=== PATIENT | female | born 1960 | race Caucasian/White ===

== ENCOUNTER 2018-06-30 20:05 | Inpatient (IN) | payer OTHER ==
[2018-06-30] MEDS ORDERED: BISACODYL (EC) 5 MG TAB PO (21:30)
[2018-06-30] MEDS: METOPROLOL (XL) 50 MG TAB PO (21:30)
[2018-06-30] MEDS ORDERED: ACETAMINOPHEN 325 MG TAB PO ×2 (21:30)
[2018-06-30] MEDS ORDERED: NACL 0.9% 3 ML SYG IV (21:30)
[2018-06-30] MEDS ORDERED: ONDANSETRON 4 MG INJ IV (21:30)
[2018-06-30] MEDS ORDERED: DOCUSATE SODIUM 100 MG CAP PO (21:30)
[2018-06-30 21:54] LABS: ADD MAN DIFF? NO
[2018-06-30 21:56] LABS: BASOPHILS % 0.5 % (0.0-2.0); EOSINOPHILS % 0.1 % (0.0-7.0); HEMATOCRIT 45.7 % (37.0-47.0); HEMOGLOBIN 14.3 g/dl (12.0-16.0); LYMPHOCYTES # 1.6 10^3/ul (0.8-2.9); MEAN CORPUSCULAR HEMOGLOBIN 27.1 pg (29.0-33.0); MEAN CORPUSCULAR HGB CONC 31.3 g/dl (32.0-37.0); MEAN CORPUSCULAR VOLUME 86.6 fl (82.0-101.0); MONOCYTE # 0.6 10^3/ul (0.3-0.9); MONOCYTES % 7.2 % (0.0-11.0); NEUTROPHIL # 6.2 10^3/ul (1.6-7.5); PLATELET COUNT 352 10^3/UL (140-415); RED BLOOD COUNT 5.28 10^6/ul (4.20-5.40); RED CELL DISTRIBUTION WIDTH 13.6 % (11.5-14.5)
[2018-06-30 21:56] LABS: WHITE BLOOD COUNT 8.5 10^3/ul (4.8-10.8)
[2018-06-30 22:14] LABS: HEMOGLOBIN A1C 7.6 % (0-5.9)
[2018-06-30 22:19] LABS: ALANINE AMINOTRANSFERASE 84 IU/L (13-69); ALBUMIN 4.6 g/dl (3.3-4.9); ALBUMIN/GLOBULIN RATIO 1.27; ALKALINE PHOSPHATASE 133 IU/L (42-121); ANION GAP 16 (5-13); ASPARTATE AMINO TRANSFERASE 60 IU/L (15-46); BILIRUBIN,INDIRECT 0.4 mg/dl (0-1.1); BILIRUBIN,TOTAL 0.4 mg/dl (0.2-1.3); BLOOD UREA NITROGEN 45 mg/dl (7-20); CARBON DIOXIDE 29 mmol/L (21-31); CHLORIDE 92 mmol/L (97-110); CHOLESTEROL 89 mg/dl (100-200); CREATININE 1.32 mg/dl (0.44-1.00); Estimated GFR 41 mL/min (>60); GLUCOSE 104 mg/dl (70-220); HDL CHOLESTEROL 22 mg/dl (37-92); LDL CHOLESTEROL,CALCULATED 40 mg/dl; MAGNESIUM 2.4 mg/dl (1.7-2.5); POTASSIUM 4.3 mmol/L (3.5-5.1); SODIUM 137 mmol/L (135-144); TOTAL PROTEIN 8.2 g/dl (6.1-8.1); TRIGLYCERIDES 134 mg/dl (0-149)
[2018-06-30 22:28] LABS: B-TYPE NATRIURETIC PEPTIDE 7690 PG/ML (0-125)
[2018-06-30] MEDS: APIXABAN 5 MG TABLET PO (22:44)
[2018-07-01 05:24] LABS: ADD MAN DIFF? NO
[2018-07-01 05:27] LABS: BASOPHILS % 0.4 % (0.0-2.0); EOSINOPHILS % 0.2 % (0.0-7.0); HEMATOCRIT 43.1 % (37.0-47.0); HEMOGLOBIN 13.6 g/dl (12.0-16.0); LYMPHOCYTES # 1.8 10^3/ul (0.8-2.9); LYMPHOCYTES % 20.2 % (15.0-51.0); MEAN CORPUSCULAR HEMOGLOBIN 27.5 pg (29.0-33.0); MEAN CORPUSCULAR HGB CONC 31.6 g/dl (32.0-37.0); MEAN CORPUSCULAR VOLUME 87.1 fl (82.0-101.0); MEAN PLATELET VOLUME 9.1 fl (7.4-10.4); MONOCYTE # 0.8 10^3/ul (0.3-0.9); MONOCYTES % 8.5 % (0.0-11.0); NEUTROPHIL # 6.3 10^3/ul (1.6-7.5); NEUTROPHILS % 70.5 % (39.0-77.0); PLATELET COUNT 355 10^3/UL (140-415); RED BLOOD COUNT 4.95 10^6/ul (4.20-5.40); RED CELL DISTRIBUTION WIDTH 13.7 % (11.5-14.5)
[2018-07-01] MEDS: PANTOPRAZOLE (EC) 40 MG TAB PO (05:45)
[2018-07-01 05:52] LABS: ALANINE AMINOTRANSFERASE 82 IU/L (13-69); ALBUMIN 4.2 g/dl (3.3-4.9); ALBUMIN/GLOBULIN RATIO 1.31; ALKALINE PHOSPHATASE 128 IU/L (42-121); ANION GAP 12 (5-13); ASPARTATE AMINO TRANSFERASE 55 IU/L (15-46); BILIRUBIN,INDIRECT 0.4 mg/dl (0-1.1); BILIRUBIN,TOTAL 0.4 mg/dl (0.2-1.3); BLOOD UREA NITROGEN 44 mg/dl (7-20); CALCIUM 8.8 mg/dl (8.4-10.2); CARBON DIOXIDE 34 mmol/L (21-31); CHLORIDE 92 mmol/L (97-110); CREATININE 1.29 mg/dl (0.44-1.00); Estimated GFR 43 mL/min (>60); GLUCOSE 101 mg/dl (70-220); POTASSIUM 4.4 mmol/L (3.5-5.1); SODIUM 138 mmol/L (135-144); TOTAL PROTEIN 7.4 g/dl (6.1-8.1)
[2018-07-01] MEDS ORDERED: METOPROLOL 5 MG INJ IV (06:00)
[2018-07-01] MEDS: BUMETANIDE 1 MG TAB PO (07:28)
[2018-07-01 08:07] LABS: DIGOXIN 1.4 ng/ml (1.0-2.0)
[2018-07-01] MEDS ORDERED: SPIRONOLACTONE 25 MG TAB PO (09:00)
[2018-07-01] MEDS ORDERED: CLOPIDOGREL 75 MG TAB PO (09:00)
[2018-07-01] MEDS ORDERED: SACUBITRIL/VALSARTAN (24mg-26mg) TABLET PO (09:00)
[2018-07-01] MEDS: APIXABAN 5 MG TABLET PO ×2 (09:24→21:09)
[2018-07-01] MEDS: ASPIRIN 81 MG TAB PO (09:25)
[2018-07-01] MEDS: METOPROLOL (XL) 50 MG TAB PO (09:25)
[2018-07-01] MEDS: LOSARTAN 25 MG TAB PO (09:26)
[2018-07-01] MEDS: DIGOXIN 0.125 MG TAB PO (12:52)
[2018-07-01] MEDS ORDERED: GLUCOSE GEL 15 GRAM TUBE PO ×2 (15:30)
[2018-07-01] MEDS ORDERED: GLUCAGON 1 MG INJ IM (15:30)
[2018-07-01] MEDS ORDERED: DEXTROSE 50% 50 ML SYRINGE IV ×2 (15:30)
[2018-07-01] MEDS ORDERED: GLUCOSE GEL 15 GRAM TUBE BUCCAL (15:30)
[2018-07-01] MEDS: INSULIN ASPART [NOVOLOG] 3 ML PEN SC ×2 (17:50→20:44)
[2018-07-01] MEDS: BUMETANIDE 1 MG INJ IV (18:37)
[2018-07-01] MEDS: BISOPROLOL 5 MG TAB PO (21:09)
[2018-07-02] MEDS: BUMETANIDE 1 MG INJ IV (05:24)
[2018-07-02] MEDS: PANTOPRAZOLE (EC) 40 MG TAB PO (05:24)
[2018-07-02 07:38] LABS: ADD MAN DIFF? NO
[2018-07-02 07:40] LABS: WHITE BLOOD COUNT 8.6 10^3/ul (4.8-10.8)
[2018-07-02 07:40] LABS: BASOPHILS % 0.4 % (0.0-2.0); EOSINOPHILS % 0.1 % (0.0-7.0); HEMATOCRIT 42.9 % (37.0-47.0); HEMOGLOBIN 13.3 g/dl (12.0-16.0); LYMPHOCYTES % 22.9 % (15.0-51.0); MEAN CORPUSCULAR HEMOGLOBIN 27.1 pg (29.0-33.0); MEAN CORPUSCULAR VOLUME 87.4 fl (82.0-101.0); MEAN PLATELET VOLUME 8.9 fl (7.4-10.4); MONOCYTE # 0.7 10^3/ul (0.3-0.9); MONOCYTES % 7.7 % (0.0-11.0); NEUTROPHIL # 5.9 10^3/ul (1.6-7.5); NEUTROPHILS % 68.7 % (39.0-77.0); PLATELET COUNT 359 10^3/UL (140-415); RED BLOOD COUNT 4.91 10^6/ul (4.20-5.40); RED CELL DISTRIBUTION WIDTH 13.6 % (11.5-14.5)
[2018-07-02] MEDS: INSULIN ASPART [NOVOLOG] 3 ML PEN SC ×4 (08:00→21:00)
[2018-07-02 08:02] LABS: ANION GAP 13 (5-13); BLOOD UREA NITROGEN 46 mg/dl (7-20); CALCIUM 9.1 mg/dl (8.4-10.2); CARBON DIOXIDE 33 mmol/L (21-31); CHLORIDE 92 mmol/L (97-110); CREATININE 1.47 mg/dl (0.44-1.00); Estimated GFR 37 mL/min (>60); GLUCOSE 90 mg/dl (70-220); MAGNESIUM 2.1 mg/dl (1.7-2.5); POTASSIUM 4.6 mmol/L (3.5-5.1); SODIUM 138 mmol/L (135-144)
[2018-07-02 08:11] LABS: B-TYPE NATRIURETIC PEPTIDE 6580 PG/ML (0-125)
[2018-07-02] MEDS: LOSARTAN 25 MG TAB PO (08:30)
[2018-07-02] MEDS: APIXABAN 5 MG TABLET PO ×2 (08:30→21:14)
[2018-07-02] MEDS: BISOPROLOL 5 MG TAB PO ×2 (08:31→21:15)
[2018-07-02] MEDS: DIGOXIN 0.125 MG TAB PO (12:43)
[2018-07-02] MEDS: BUMETANIDE 1 MG TAB PO (17:24)
[2018-07-03] MEDS: BUMETANIDE 1 MG TAB PO ×2 (05:32→17:30)
[2018-07-03] MEDS: PANTOPRAZOLE (EC) 40 MG TAB PO (05:32)
[2018-07-03 05:35] LABS: ADD MAN DIFF? NO
[2018-07-03 05:36] LABS: BASOPHILS % 0.5 % (0.0-2.0); EOSINOPHILS % 0.5 % (0.0-7.0); HEMATOCRIT 41.9 % (37.0-47.0); LYMPHOCYTES # 1.9 10^3/ul (0.8-2.9); LYMPHOCYTES % 22.2 % (15.0-51.0); MEAN CORPUSCULAR HEMOGLOBIN 26.9 pg (29.0-33.0); MEAN CORPUSCULAR VOLUME 86.7 fl (82.0-101.0); MEAN PLATELET VOLUME 9.1 fl (7.4-10.4); MONOCYTE # 0.7 10^3/ul (0.3-0.9); MONOCYTES % 8.4 % (0.0-11.0); NEUTROPHILS % 68.2 % (39.0-77.0); PLATELET COUNT 348 10^3/UL (140-415); RED BLOOD COUNT 4.83 10^6/ul (4.20-5.40); RED CELL DISTRIBUTION WIDTH 13.6 % (11.5-14.5)
[2018-07-03 05:36] LABS: WHITE BLOOD COUNT 8.7 10^3/ul (4.8-10.8)
[2018-07-03 06:19] LABS: PHOSPHORUS 5.3 mg/dl (2.5-4.9)
[2018-07-03 06:19] LABS: ALANINE AMINOTRANSFERASE 68 IU/L (13-69); ALBUMIN 4.1 g/dl (3.3-4.9); ALBUMIN/GLOBULIN RATIO 1.28; ALKALINE PHOSPHATASE 129 IU/L (42-121); ANION GAP 14 (5-13); ASPARTATE AMINO TRANSFERASE 43 IU/L (15-46); BILIRUBIN,INDIRECT 0.1 mg/dl (0-1.1); BILIRUBIN,TOTAL 0.1 mg/dl (0.2-1.3); BLOOD UREA NITROGEN 59 mg/dl (7-20); CALCIUM 8.7 mg/dl (8.4-10.2); CARBON DIOXIDE 30 mmol/L (21-31); CHLORIDE 92 mmol/L (97-110); CREATININE 1.82 mg/dl (0.44-1.00); Estimated GFR 29 mL/min (>60); GLUCOSE 91 mg/dl (70-220); MAGNESIUM 2.2 mg/dl (1.7-2.5); POTASSIUM 4.3 mmol/L (3.5-5.1); SODIUM 136 mmol/L (135-144); TOTAL PROTEIN 7.3 g/dl (6.1-8.1)
[2018-07-03] MEDS: INSULIN ASPART [NOVOLOG] 3 ML PEN SC ×4 (07:48→20:47)
[2018-07-03] MEDS: APIXABAN 5 MG TABLET PO ×2 (08:05→20:45)
[2018-07-03] MEDS: LOSARTAN 25 MG TAB PO (08:05)
[2018-07-03] MEDS: BISOPROLOL 5 MG TAB PO ×2 (08:06→20:46)
[2018-07-03] MEDS: DIGOXIN 0.125 MG TAB PO (13:14)
[2018-07-03 17:50] LABS: ADD UMIC NO; UR ASCORBIC ACID NEGATIVE (NEGATIVE); UR BILIRUBIN (Dip) NEGATIVE (NEGATIVE); UR BLOOD (Dip) NEGATIVE (NEGATIVE); UR CLARITY CLEAR (CLEAR); UR COLOR YELLOW (YELLOW); UR GLUCOSE (Dip) NEGATIVE (NEGATIVE); UR KETONES (Dip) NEGATIVE (NEGATIVE); UR LEUKOCYTE ESTERASE (Dip) NEGATIVE Leu/ul (NEGATIVE); UR NITRITE (Dip) NEGATIVE (NEGATIVE); UR SPECIFIC GRAVITY (Dip) 1.012 (1.003-1.030); UR TOTAL PROTEIN (Dip) NEGATIVE (NEGATIVE); UR UROBILINOGEN (Dip) NEGATIVE (NEGATIVE)
[2018-07-03 18:04] LABS: SODIUM,URINE RANDOM 15 mmol/L (30-90)
[2018-07-04] MEDS: PANTOPRAZOLE (EC) 40 MG TAB PO (05:12)
[2018-07-04] MEDS: BUMETANIDE 1 MG TAB PO ×2 (05:13→18:48)
[2018-07-04 06:10] LABS: ADD MAN DIFF? NO
[2018-07-04 06:14] LABS: WHITE BLOOD COUNT 7.3 10^3/ul (4.8-10.8)
[2018-07-04 06:14] LABS: BASOPHILS % 0.4 % (0.0-2.0); EOSINOPHILS % 0.3 % (0.0-7.0); HEMATOCRIT 44.1 % (37.0-47.0); HEMOGLOBIN 13.8 g/dl (12.0-16.0); MEAN CORPUSCULAR HGB CONC 31.3 g/dl (32.0-37.0); MEAN CORPUSCULAR VOLUME 86.3 fl (82.0-101.0); MEAN PLATELET VOLUME 9.2 fl (7.4-10.4); MONOCYTE # 0.6 10^3/ul (0.3-0.9); MONOCYTES % 8.1 % (0.0-11.0); NEUTROPHIL # 4.7 10^3/ul (1.6-7.5); NEUTROPHILS % 64.1 % (39.0-77.0); PLATELET COUNT 332 10^3/UL (140-415); RED BLOOD COUNT 5.11 10^6/ul (4.20-5.40); RED CELL DISTRIBUTION WIDTH 13.6 % (11.5-14.5)
[2018-07-04 06:34] LABS: ANION GAP 16 (5-13); BLOOD UREA NITROGEN 66 mg/dl (7-20); CALCIUM 8.8 mg/dl (8.4-10.2); CARBON DIOXIDE 29 mmol/L (21-31); CHLORIDE 91 mmol/L (97-110); Estimated GFR 29 mL/min (>60); GLUCOSE 86 mg/dl (70-220); MAGNESIUM 2.2 mg/dl (1.7-2.5); PHOSPHORUS 5.4 mg/dl (2.5-4.9); POTASSIUM 4.7 mmol/L (3.5-5.1); SODIUM 136 mmol/L (135-144)
[2018-07-04] MEDS: INSULIN ASPART [NOVOLOG] 3 ML PEN SC ×4 (07:54→19:58)
[2018-07-04] MEDS: LOSARTAN 25 MG TAB PO (08:38)
[2018-07-04] MEDS: APIXABAN 5 MG TABLET PO ×2 (08:38→20:05)
[2018-07-04] MEDS: BISOPROLOL 5 MG TAB PO ×2 (08:39→20:05)
[2018-07-04] MEDS: DIGOXIN 0.125 MG TAB PO (13:24)
[2018-07-04 15:42] LABS: CREATININE, RANDOM URINE 95 mg/dL (20-275); MICROALBUMIN 6.3 mg/dL; MICROALBUMIN/CREATININE RATIO 66 (<30)
[2018-07-05 05:59] LABS: ANION GAP 16 (5-13); BLOOD UREA NITROGEN 64 mg/dl (7-20); CALCIUM 8.7 mg/dl (8.4-10.2); CARBON DIOXIDE 29 mmol/L (21-31); CHLORIDE 93 mmol/L (97-110); Estimated GFR 33 mL/min (>60); GLUCOSE 86 mg/dl (70-220); MAGNESIUM 2.1 mg/dl (1.7-2.5); POTASSIUM 4.2 mmol/L (3.5-5.1); SODIUM 138 mmol/L (135-144)
[2018-07-05] MEDS: PANTOPRAZOLE (EC) 40 MG TAB PO (06:07)
[2018-07-05] MEDS: BUMETANIDE 1 MG TAB PO (06:07)
[2018-07-05] MEDS: INSULIN ASPART [NOVOLOG] 3 ML PEN SC ×2 (07:36→11:30)
[2018-07-05] MEDS: APIXABAN 5 MG TABLET PO (08:09)
[2018-07-05] MEDS: BISOPROLOL 5 MG TAB PO (08:10)
[2018-07-05] MEDS: LOSARTAN 25 MG TAB PO (08:10)
[2018-07-05] MEDS: DIGOXIN 0.125 MG TAB PO (13:00)
== END 2018-07-05 14:49 | disposition home or self-care (01) | DRG 291 ==
LOC: 6WM 20:05
DX: I13.0 Hypertensive heart and chronic kidney disease with heart failure and stage 1 through stage 4 chronic kidney disease, or unspecified chronic kidney disease (principal); I50.23 Acute on chronic systolic (congestive) heart failure; N17.9 Acute kidney failure, unspecified; N18.9 Chronic kidney disease, unspecified; I42.9 Cardiomyopathy, unspecified; E11.22 Type 2 diabetes mellitus with diabetic chronic kidney disease; I27.20 Pulmonary hypertension, unspecified; E66.9 Obesity, unspecified; R74.0 Nonspecific elevation of levels of transaminase and lactic acid dehydrogenase [LDH]; I48.2 Chronic atrial fibrillation; Z68.34 Body mass index [BMI] 34.0-34.9, adult; Z95.810 Presence of automatic (implantable) cardiac defibrillator
CPT/HCPCS: 71045; 76705; 80048; 80053; 80061; 80162; 81003; 82043; 82962; 83036; 83735; 83880; 84100; 84155; 84300; 84443; 85025; 90686; 93005; 93306